=== PATIENT | female | born 1980 | race Caucasian/White ===

== ENCOUNTER 2016-03-10 15:04 | Outpatient (CLI) ==
--- NOTE | 2016-03-10 15:37 | DI ---
EXAM: Chest two view, frontal and lateral views. HISTORY: Cough. COMPARISON: None available. FINDINGS: The heart size is normal. There is no pulmonary vascular congestion. Right upper lobe p erihilar and lingular consolidation noted. No pleural effusion or pneumothorax is seen. No acute o sseous abnormality identified. IMPRESSION: Bilateral pneumonia, greater in the right upper lobe.
== END 2016-03-10 15:05 | disposition home or self-care (01) ==
LOC: RAD 15:04
PROVIDERS: ATTEND Family Medicine
DX: R05 Cough (principal)

== ENCOUNTER 2016-03-14 10:26 | Outpatient (CLI) ==
--- NOTE | 2016-03-14 12:20 | DI ---
EXAM: CHEST FRONTAL AND LATERAL VIEWS HISTORY: Pneumonia. COMPARISON: 03/10/2016 FINDINGS: Heart size remains within normal limits. Tiny linear focus of density over the left lowe r lobe is grossly stable. This could represent residual pneumonia or scarring. Previously noted ri ght perihilar density has mostly cleared. Lungs are otherwise unremarkable. IMPRESSION: Clearing pneumonia.
== END 2016-03-14 10:27 | disposition home or self-care (01) ==
LOC: RAD 10:26
PROVIDERS: ATTEND Family Medicine
DX: J18.9 Pneumonia, unspecified organism (principal)

== ENCOUNTER 2016-04-14 11:00 | Outpatient (CLI) ==
--- NOTE | 2016-04-14 12:06 | DI ---
Examination: Two radiographic images of the chest. Comparison: 03/14/2016. Reason for study: Cough. FINDINGS: No pneumothorax, pleural effusion, or focal consolidation. The cardiac silhouette is not enlarged. Impression: No acute cardiopulmonary findings.
== END 2016-04-14 11:01 | disposition home or self-care (01) ==
LOC: RAD 11:00
PROVIDERS: ATTEND Family Medicine
DX: R05 Cough (principal)

== ENCOUNTER 2017-06-10 07:14 | Outpatient (CLI) ==
--- NOTE | 2017-06-10 09:35 | US ---
EXAM: Abdominal ultrasound limited HISTORY: Epigastric pain COMPARISON: None TECHNIQUE: Sonographic and limited Doppler evaluation of the right upper quadrant was performed. FINDINGS: The liver is normal in echogenicity and measures 12.0 cm. The portal vein is patent. The gallbladder demonstrates no stones or sludge. The gallbladder wall measures 0.2 cm in thickness. Co mmon bile duct is unremarkable and measures 0.4 cm in diameter. The pancreas is unremarkable in appe arance. The right kidney measures 10.9 x 3.9 x 5.2 cm with cortical thickness of 1.5 cm. IMPRESSION: No sonographic abnormality to account for patient's symptoms.
== END 2017-06-10 07:15 | disposition home or self-care (01) ==
LOC: RAD 07:14
PROVIDERS: ATTEND Family Medicine
DX: R10.13 Epigastric pain (principal)